=== PATIENT | male | born 1960 | race African-American/Black ===

== ENCOUNTER 2020-08-01 14:24 | Emergency (ER) | payer BC ==
[2020-08-01] MEDS ORDERED: Ibuprofen 200 MG TAB ONE (14:48)
== END 2020-08-01 16:18 | disposition home or self-care (01) ==
LOC: ERS 14:24
DX: S52.512A Displaced fracture of left radial styloid process, initial encounter for closed fracture (principal); W23.0XXA Caught, crushed, jammed, or pinched between moving objects, initial encounter
CPT/HCPCS: 29125